=== PATIENT | male | born 1950 | race Caucasian/White ===

== ENCOUNTER 2018-02-20 22:36 | Emergency (ER) | payer MEDICARE, BC, OTHER ==
[2018-02-20] MEDS: LIDOCAINE 1% MDV 20ML VIAL IM (23:45)
[2018-02-20] MEDS: cefTRIAXone SOD 1 GM in D5W MINI-BAG PLUS 50 ML IV (23:45)
[2018-02-20] MEDS ORDERED: ADACEL/BOOSTRIX VACCINE (DIPHTH/PERTUSS/ACELL/TETANUS)0.5ML SYR (90715) IM (23:45)
[2018-02-21] MEDS: CEPHALEXIN 500 MG CAP PO (00:45)
== END 2018-02-21 00:59 | disposition home or self-care (01) ==
LOC: M ED 22:36
DX: S62.634A Displaced fracture of distal phalanx of right ring finger, initial encounter for closed fracture (principal); W23.0XXA Caught, crushed, jammed, or pinched between moving objects, initial encounter
CPT/HCPCS: J0696

== ENCOUNTER → 2022-01-18 | Outpatient (CLI) | payer MEDICARE ==
[~2022-01-18] MED LIST: KEFL500C17 PO
== END ==
LOC: M WHC 09:00
PROVIDERS: ATTEND Internal Medicine
DX: F17.210 Nicotine dependence, cigarettes, uncomplicated (principal)

== ENCOUNTER → 2022-01-23 | Outpatient (CLI) | payer MEDICARE | LOC: M RAD 07:25 | PROVIDERS: ATTEND Internal Medicine | DX: Z87.891 Personal history of nicotine dependence (principal) ==

== ENCOUNTER → 2022-04-05 | Outpatient (CLI) | payer MEDICARE | LOC: M LABSMTC 10:41 | PROVIDERS: ATTEND Anesthesiology | DX: Z01.812 Encounter for preprocedural laboratory examination (principal); Z11.52 Encounter for screening for COVID-19 ==

== ENCOUNTER 2022-04-10 07:21 | Day surgery (SDC) | payer MEDICARE ==
[~2022-04-10] VITALS: Ht 177.8 cm; Wt 68.4 kg
[~2022-04-10 07:21] MED LIST changes: +ceFAZolin SOD 2 GM in IV 1 EA IV ONE
[2022-04-10] MEDS ORDERED: LR 1,000 ML IV SCH ×2 (07:35→11:00)
[2022-04-10] MEDS ORDERED: LIDOCAINE 1% SDV 5ML VIAL SC PRN (07:35)
[2022-04-10] MEDS ORDERED: BUPIVACAINE/EPIN 0.25% 30ML VIAL As Ordered ONE (08:52)
[2022-04-10] MEDS ORDERED: fentaNYL 100 MCG/2 ML INJECTION As Ordered ONE ×2 (09:45→10:00)
[2022-04-10] MEDS ORDERED: propofoL 200 MG/20 ML VIAL As Ordered ONE (09:45)
[2022-04-10] MEDS ORDERED: MIDAZOLAM INJ 2MG/2ML VIAL As Ordered ONE (09:45)
[2022-04-10] MEDS ORDERED: LIDOCAINE 2% 100MG/5ML SDV (FOR ANES.) As Ordered ONE (09:45)
[2022-04-10] MEDS ORDERED: SUGAMMADEX SODIUM 500 MG/5 ML VIAL (BRIDION) As Ordered ONE (09:45)
[2022-04-10] MEDS ORDERED: ROCURONIUM BROMIDE 50MG/5ML VIAL As Ordered ONE (09:45)
[2022-04-10] MEDS ORDERED: ONDANSETRON 4MG 2ML VIAL As Ordered ONE (09:45)
[2022-04-10] MEDS ORDERED: METOCLOPRAMIDE INJ 10MG/2ML VIAL As Ordered ONE (09:45)
[2022-04-10] MEDS ORDERED: ACETAMINOPHEN 1000MG 100ML IV BAG As Ordered ONE (09:45)
[2022-04-10] MEDS ORDERED: KETOROLAC 60MG 2ML VIAL As Ordered ONE (09:49)
[2022-04-10] MEDS ORDERED: oxyCODONE 5MG TAB PO PRN (11:00)
[2022-04-10] MEDS ORDERED: NS 1,000 ML IV SCH (11:00)
[2022-04-10] MEDS ORDERED: traMADol 50 MG TAB PO PRN (11:00)
[2022-04-10] MEDS ORDERED: fentaNYL 100 MCG/2 ML INJECTION IV PRN (11:00)
[2022-04-10] MEDS ORDERED: ONDANSETRON 4MG 2ML VIAL IV PRN (11:00)
[2022-04-10 12:39] VITALS: BP 134/74
== END 2022-04-10 13:04 | disposition home or self-care (01) ==
LOC: M SDC 07:21
PROVIDERS: ATTEND Surgery
DX: K40.90 Unilateral inguinal hernia, without obstruction or gangrene, not specified as recurrent (principal); F17.210 Nicotine dependence, cigarettes, uncomplicated
CPT/HCPCS: 49650; C1781; J0690; J1100; J2250; J2405; J2765; J3010; S2900

== ENCOUNTER 2023-08-17 19:09 | Observation (INO) | payer MEDICARE ==
[~2023-08-17] VITALS: Ht 177.8 cm; Wt 67.5 kg
[~2023-08-17 19:09] MED LIST changes: -ceFAZolin SOD 2 GM in IV 1 EA IV ONE
[2023-08-17 19:53] VITALS: BP 156/74; O2SAT 96
[2023-08-17 19:55] LABS: BASO # 0.1 10^3/uL (0.0-0.2); BASO % 0.9 % (0.0-1.0); EOS # 0.2 10^3/uL (0.0-0.5); EOS % 2.6 % (0.0-3.0); HEMATOCRIT 44.6 % (42.0-52.0); HEMOGLOBIN 15.8 g/dl (13.5-17.5); LYMPH # 2.7 10^3/uL (1.5-5.0); LYMPH % 33.8 % (24.0-44.0); MEAN CORPUSCULAR HEMOGLOBIN 33.8 pg (27.0-33.0); MEAN CORPUSCULAR HGB CONC 35.4 g/dl (32.0-36.5); MEAN CORPUSCULAR VOLUME 95.3 fl (80.0-96.0); MONO # 0.7 10^3/uL (0.0-0.8); MONO % 8.3 % (2.0-8.0); NEUTROPHILS # 4.3 10^3/uL (1.5-8.5); PLATELET COUNT, AUTOMATED 269 10^3/uL (150-450); RED BLOOD COUNT 4.68 10^6/uL (4.30-6.10); WHITE BLOOD COUNT 7.9 10^3/uL (4.0-10.0)
[2023-08-17] MEDS: ASPIRIN 325 MG TAB PO ONE (19:55)
[2023-08-17] MEDS ORDERED: ISOVUE-370 76% 100ML VIAL As Ordered ONE (20:08)
[2023-08-17 20:17] LABS: INR 1.06; PARTIAL THROMBOPLASTIN TIME 34.8 SECONDS (24.8-34.2); PROTHROMBIN TIME 13.5 SECONDS (12.5-14.5)
[2023-08-17] MEDS: ATORVASTATIN 20 MG TAB PO ONE (20:45)
[2023-08-17] MEDS ORDERED: HOME MED LIST COMPLETE! XX SCH (22:30)
[2023-08-17 23:16] LABS: HEMOGLOBIN A1c 5.4 % (4.0-6.0)
[2023-08-17 23:25] VITALS: BP 171/83; TEMP 98.8; O2SAT 94
[2023-08-17] MEDS: ENOXAPARIN 40MG/0.4ML SYRINGE (J1650 PER 10MG) SC SCH (23:38)
[2023-08-18 02:00] VITALS: BP 167/82; TEMP 98.2; O2SAT 96
[2023-08-18 05:34] VITALS: BP 153/82; TEMP 98.4; O2SAT 95
[2023-08-18 06:00] LABS: HEMATOCRIT 44.3 % (42.0-52.0); HEMOGLOBIN 15.5 g/dl (13.5-17.5); MEAN CORPUSCULAR HEMOGLOBIN 33.6 pg (27.0-33.0); MEAN CORPUSCULAR VOLUME 96.1 fl (80.0-96.0); PLATELET COUNT, AUTOMATED 242 10^3/uL (150-450); RED BLOOD COUNT 4.61 10^6/uL (4.30-6.10); WHITE BLOOD COUNT 7.9 10^3/uL (4.0-10.0)
[2023-08-18 06:12] LABS: CHOLESTEROL RISK RATIO 3.43 (<5); HDL CHOLESTEROL 38.1 MG/DL (>40); LDL CHOLESTEROL 68.9 MG/DL (<100); NON-HDL-C 92.9 MG/DL
[2023-08-18 06:13] LABS: ALBUMIN 3.4 G/DL (3.2-5.2); ALKALINE PHOSPHATASE 98 U/L (46-116); ALT/SGPT 24 U/L (7.0-40); AST/SGOT 15 U/L (<34); BILIRUBIN,TOTAL 0.4 MG/DL (0.3-1.2); BLOOD UREA NITROGEN 17 MG/DL (9-23); CALCIUM LEVEL 8.9 MG/DL (8.3-10.6); CARBON DIOXIDE LEVEL 27 MMOL/L (20-31); CHLORIDE LEVEL 107 MMOL/L (98-107); GLOMERULAR FILTRATION RATE > 60.0 (>42); GLUCOSE, FASTING 93 MG/DL (74-106); POTASSIUM SERUM 4.4 MMOL/L (3.5-5.1); SODIUM LEVEL 137 MMOL/L (136-145); TOTAL PROTEIN 6.1 G/DL (5.7-8.2)
[2023-08-18] MEDS: ASPIRIN 81MG ENTERIC TABLET PO SCH (09:47)
[2023-08-18 10:12] VITALS: BP 154/79; TEMP 98.1; O2SAT 95
[2023-08-18 12:48] VITALS: BP 164/76
[2023-08-18] MEDS: amLODIPine 5 MG TAB PO ONE (12:48)
[2023-08-18] MEDS ORDERED: ASPI81TAEC PO (12:49)
[2023-08-18] MEDS ORDERED: AMLO1TAB24 PO (12:49)
[2023-08-18] MEDS ORDERED: ATOR40TA75 PO (12:49)
[2023-08-18 13:51] VITALS: BP 136/68; TEMP 98.1; O2SAT 98
[2023-08-18] MEDS ORDERED: ATORVASTATIN 20 MG TAB PO SCH (21:00)
== END 2023-08-18 14:44 | disposition home or self-care (01) ==
LOC: M ED 19:09 → M ED INP 22:04 → M MSPAV 23:25
PROVIDERS: ADMIT Preventive Medicine Undersea and Hyperbaric Medicine; ATTEND Internal Medicine
DX: R47.81 Slurred speech (principal); R29.810 Facial weakness; K11.7 Disturbances of salivary secretion; R29.700 NIHSS score 0; I10 Essential (primary) hypertension; I66.01 Occlusion and stenosis of right middle cerebral artery; I67.82 Cerebral ischemia; I45.10 Unspecified right bundle-branch block; Z91.018 Allergy to other foods; Z79.899 Other long term (current) drug therapy; Z79.82 Long term (current) use of aspirin; F17.210 Nicotine dependence, cigarettes, uncomplicated
CPT/HCPCS: 36415; 70450; 70496; 70498; 70551; 71045; 80047; 80053; 80061; 83036; 83735; 84443; 85025; 85027; 85610; 85730; 93005; 93041; 93306; 93970; 94760; 96372; 97161; 99285; G0378; J1650; Q9967

== ENCOUNTER → 2023-08-20 | Outpatient (CLI) | payer MEDICARE ==
[~2023-08-20] MED LIST changes: +AMLO1TAB24 PO; +ASPI81TAEC PO; +ATOR40TA75 PO
== END ==
LOC: M SLEEP 07:39
PROVIDERS: ATTEND Internal Medicine
DX: G45.9 Transient cerebral ischemic attack, unspecified (principal)

== ENCOUNTER → 2024-05-19 | Outpatient (CLI) | payer MEDICARE | LOC: M RAD 08:30 | PROVIDERS: ATTEND Internal Medicine | DX: F17.210 Nicotine dependence, cigarettes, uncomplicated (principal) ==